=== PATIENT | male | born 1955 | race Caucasian/White ===

== ENCOUNTER 2017-01-17 10:25 | Emergency (ER) | payer BC ==
[~2017-01-17] VITALS: Ht 185.4 cm; Wt 93.2 kg
[~2017-01-17 10:25] MED LIST: ALTACE 5MG5 MG PO; CIPRO 500MG TA500 MG PO; COLACE 100100 MG/CAP PO; LEXAPRO20 MG PO; LIPITOR20 MG PO; PERCOCET 325 MG1 TA2 PO
[2017-01-17 10:29] VITALS: TEMP 97.8
[2017-01-17] MEDS ORDERED: ALTACE 5MG5 MG PO (10:38)
[2017-01-17] MEDS ORDERED: LIPITOR20 MG PO (10:38)
[2017-01-17] MEDS ORDERED: LEXAPRO 10MG10 MG PO (10:39)
[2017-01-17 11:25] LABS: PH 5 (5-8); SQUAMOUS EPITHELIAL None Seen /hpf; URINE APPEARANCE Hazy; URINE BACTERIA None Seen /hpf; URINE BILIRUBIN Negative (NEGATIVE); URINE BLOOD 3+ (NEGATIVE); URINE COLOR Yellow; URINE GLUCOSE Negative (NEGATIVE); URINE KETONE Negative (NEGATIVE); URINE RBC >50 /hpf; URINE UROBILINOGEN Negative (NEGATIVE)
[2017-01-17] MEDS ORDERED: PERCOCET 325 MG1 TA2 PO (12:27)
[2017-01-17] MEDS ORDERED: PHENERGAN 25 TA25 MG PO (12:27)
[2017-01-17] MEDS ORDERED: CIPRO 500MG TA500 MG PO (12:27)
[2017-01-17] MEDS ORDERED: FLOMAX 0.40.4 MG/CAP PO (14:14)
[2017-01-17 14:18] VITALS: BP 125/75; PULSE 59
== END 2017-01-17 14:35 | disposition home or self-care (01) ==
LOC: COL.ER 10:25
PROVIDERS: Emergency Medicine
DX: N20.1 Calculus of ureter (principal); Z87.442 Personal history of urinary calculi; R11.0 Nausea
CPT/HCPCS: J1170; J1885; J2405; J7030; J7040

== ENCOUNTER 2018-04-22 17:39 | Emergency (ER) | payer BC ==
[~2018-04-22] VITALS: Ht 185.4 cm; Wt 93.2 kg
[~2018-04-22 17:39] MED LIST changes: +FLOMAX 0.40.4 MG/CAP PO; +LEXAPRO 10MG10 MG PO; +PHENERGAN 25 TA25 MG PO
[2018-04-22 17:44] VITALS: TEMP 98.3
[2018-04-22 21:09] VITALS: BP 129/77; PULSE 70
== END 2018-04-22 21:29 | disposition home or self-care (01) ==
LOC: COL.ER 17:39
DX: S63.282A Dislocation of proximal interphalangeal joint of right middle finger, initial encounter (principal); S01.112A Laceration without foreign body of left eyelid and periocular area, initial encounter; V89.1XXA Person injured in unspecified nonmotor-vehicle accident, nontraffic, initial encounter; Y92.830 Public park as the place of occurrence of the external cause

== ENCOUNTER 2020-10-03 11:01 | Day surgery (SDC) | payer MEDICARE, OTHER ==
[2020-10-03] VITALS (7 sets, daily range): BP systolic 117–139; BP diastolic 58–89; PULSE 58–71; TEMP 97.9–98.2
[~2020-10-03] VITALS: Ht 185.4 cm; Wt 96.0 kg
[2020-10-03] MEDS ORDERED: ONE-A-DAY ESSE1 EACH PO (12:47)
[2020-10-03] MEDS ORDERED: ASPIRIN E.C. 8181 MG PO (12:48)
[2020-10-03] MEDS ORDERED: PHARMASSURE ZIN50 MG PO (12:48)
[2020-10-03] MEDS ORDERED: EPA FISH OIL1 SGL PO (12:48)
[2020-10-03] MEDS ORDERED: NORCO 325 MG-51 TAB PO (16:24)
--- NOTE | 2020-10-03 18:00 | NUR ---
Patient post op to room 324 at 1800. Alert and oriented, answers questions appropriately. Lap sites to abdomen with edges well approximated, no redness or drainage noted. No c/o at this time.
--- NOTE | 2020-10-03 20:03 | NUR ---
Patient ambulates in can, eats 50% of meal. Voids 300ml bloody urine. Discharge instructions reviewed with patient and spouse, verbalized understanding. Discharged via wheelchair to auto/home with family at 0805.
== END 2020-10-03 20:05 | disposition home or self-care (01) ==
LOC: SDCO → SURG 17:45 → SDCO 20:05
DX: K40.90 Unilateral inguinal hernia, without obstruction or gangrene, not specified as recurrent (principal); N20.0 Calculus of kidney; E78.00 Pure hypercholesterolemia, unspecified; E78.5 Hyperlipidemia, unspecified; I10 Essential (primary) hypertension; Z20.822 Contact with and (suspected) exposure to COVID-19; Z79.899 Other long term (current) drug therapy; Z80.1 Family history of malignant neoplasm of trachea, bronchus and lung
CPT/HCPCS: OP; C1781; J0690; J1100; J2405; J2704; J2710; J3010; J7120

== ENCOUNTER → 2020-11-06 | Outpatient (CLI) | payer MEDICARE, OTHER ==
[~2020-11-06] VITALS: Ht 185.4 cm; Wt 96.7 kg
[~2020-11-06] MED LIST changes: +ASPIRIN E.C. 8181 MG PO; +EPA FISH OIL1 SGL PO; +NORCO 325 MG-51 TAB PO; +ONE-A-DAY ESSE1 EACH PO; +PHARMASSURE ZIN50 MG PO
[2020-11-06 09:34] VITALS: BP 129/82; PULSE 59
[2020-11-06 10:55] VITALS: BP 135/94; PULSE 59
== END ==
LOC: COL.RAD 09:21
DX: M54.16 Radiculopathy, lumbar region (principal)
CPT/HCPCS: J3301

== ENCOUNTER → 2021-11-13 | Outpatient (CLI) | payer MEDICARE, OTHER ==
[~2021-11-13] VITALS: Ht 185.4 cm; Wt 97.5 kg
[2021-11-13 12:22] VITALS: BP 128/85; PULSE 66; TEMP 98
[2021-11-13 13:25] VITALS: BP 158/87; PULSE 62
== END ==
LOC: COL.RAD 12:00
DX: M51.16 Intervertebral disc disorders with radiculopathy, lumbar region (principal)
CPT/HCPCS: J3301

== ENCOUNTER 2021-12-09 03:11 | Emergency (ER) | payer MEDICARE, OTHER ==
[~2021-12-09] VITALS: Ht 185.4 cm; Wt 95.5 kg
[2021-12-09 03:17] VITALS: TEMP 97.5
[2021-12-09 03:36] LABS: COLLECTION METHOD CLEAN CATCH
[2021-12-09 03:38] LABS: BASO # 0.1 K/mm3 (0.0-0.2); BASO % 0.7 % (0.0-2.0); EOS # 0.1 K/mm3 (0.0-0.7); EOS % 1.6 % (0.0-4.0); GRAN # 3.1 K/mm3 (1.4-6.5); HEMATOCRIT 41.5 % (42.0-52.0); HEMOGLOBIN 13.7 g/dl (13.5-18.0); LYMPH # 3.1 K/mm3 (1.2-3.4); LYMPH % 44.7 % (20.0-51.0); MEAN CELL VOLUME 96 fl (80.0-100.0); MEAN CORPUSCULAR HEMOGLOBIN 32 pg (27-31); MEAN CORPUSCULAR HGB CONC 33 g/dl (33.0-37.0); MEAN PLATELET VOLUME 10.9 fl (7.4-10.4); MONO # 0.6 K/mm3 (0.1-0.6); MONO % 7.9 % (1.7-9.3); PLATELET COUNT 143 K/mm3 (130-400); RED BLOOD COUNT 4.31 M/mm3 (4.20-5.60); REDCELL DISTRIBUTION WIDTH-CV 13.4 % (11.5-14.5)
[2021-12-09 03:41] LABS: MUCOUS Present (NOT PRESENT); PH 5 (5-8); SQUAMOUS EPITHELIAL None Seen /hpf (0-10); URINE APPEARANCE Clear (CLEAR/HAZY); URINE BACTERIA None Seen /hpf (NONE SEEN); URINE BILIRUBIN Negative (NEGATIVE); URINE BLOOD 3+ (NEGATIVE); URINE COLOR Yellow (YELLOW); URINE GLUCOSE Negative (NEGATIVE); URINE KETONE Negative (NEGATIVE); URINE LEUKOCYTE ESTERASE Negative (NEGATIVE); URINE NITRATE Negative (NEGATIVE); URINE PROTEIN(semi-quant) Negative (NEGATIVE); URINE RBC 20-50 /hpf (0-2); URINE UROBILINOGEN Negative (NEGATIVE)
[2021-12-09 03:55] LABS: ALBUMIN 3.7 gm/dL (3.4-4.8); BILIRUBIN,TOTAL 0.4 mg/dL (0.2-1.2); CALCIUM 8.4 mg/dL (8.4-10.2); CREATININE, serum 1.3 mg/dL (0.72-1.25); TOTAL PROTEIN 6.5 gm/dL (6.2-8.1)
[2021-12-09] MEDS ORDERED: ROXICODONE 55 MG/TAB PO (04:59)
[2021-12-09] MEDS ORDERED: ZOFRAN ODT4 MG PO (04:59)
[2021-12-09 05:17] VITALS: BP 112/75; PULSE 60
== END 2021-12-09 05:18 | disposition home or self-care (01) ==
LOC: COL.ER 03:11
PROVIDERS: Student in an Organized Health Care Education/Training Program
DX: N20.2 Calculus of kidney with calculus of ureter (principal)
CPT/HCPCS: J1170; J1885; J2405